=== PATIENT | male | born 1950 | race African-American/Black ===

== ENCOUNTER 2018-02-04 08:54 | Day surgery (SDC) | payer OTHER ==
[~2018-02-04 08:54] MED LIST: TETRACAINE 0.5% OPHTH 1 DOSE AFFEYE ONE; VIGAMOX 0.5% OPHTH 1 DOSE AFFEYE ONE
[2018-02-04] MEDS ORDERED: VIGAMOX 0.5% OPHTH 1 DOSE AFFEYE ONE ×2 (08:56→09:01)
[2018-02-04] MEDS ORDERED: PROLENSA OPHTH 1 DOSE AFFEYE ONE (09:02)
[2018-02-04] MEDS ORDERED: ALPHAGAN-P OPHTH 1 DOSE AFFEYE ONE (09:03)
[2018-02-04] MEDS ORDERED: AK-DILATE 2.5% OPHTH 1 DOSE OP ONE ×3 (09:04→09:06)
[2018-02-04] MEDS ORDERED: MYDRIACIL OPHTH 1 DOSE AFFEYE ONE ×3 (09:04→09:06)
[2018-02-04] MEDS ORDERED: CYCLOGYL 1% OPHTH 1 DOSE OP ONE ×3 (09:04→09:06)
[2018-02-04] MEDS ORDERED: NS 500 ML IV 500 ML IV ONE (09:14)
[2018-02-04] MEDS ORDERED: BETADINE OPHTH SOLN 5% EACHEYE ONE (13:00)
[2018-02-04] MEDS ORDERED: TETRACAINE 0.5% OPHTH 1 DOSE AFFEYE ONE ×2 (13:00→13:03)
[2018-02-04] MEDS ORDERED: BSS OPHTH (PLAIN) 500 ML with VANCOMYCIN HCL 500 MG VIAL 25 MG, ADRENALINE CHL INJ 1 MG IR ONE ×3 (13:03)
[2018-02-04] MEDS ORDERED: DUOVISC IO ONE (13:04)
[2018-02-04] MEDS ORDERED: ADRENALINE CHL INJ IJ ONE (13:04)
[2018-02-04] MEDS ORDERED: XYLOCAINE-MPF 1% IJ ONE (13:04)
[2018-02-04] MEDS ORDERED: VIGAMOX 0.5% AFFEYE ONE (13:17)
[2018-02-04] MEDS ORDERED: DIPRIVAN VIAL ONE (15:37)
[2018-02-04 16:17] VITALS: BP 141/68
== END 2018-02-04 13:43 | disposition home or self-care (01) ==
LOC: SURG1 08:54
PROVIDERS: ATTEND Ophthalmology
PROC: 08DK3ZZ Extraction of Left Lens, Percutaneous Approach (ICD-10-PCS; principal; 2018-02-04 16:30)
PROC: 08RK3JZ Replacement of Left Lens with Synthetic Substitute, Percutaneous Approach (ICD-10-PCS; principal; 2018-02-04 16:30)
DX: H25.12 Age-related nuclear cataract, left eye (principal); H25.012 Cortical age-related cataract, left eye
CPT/HCPCS: A4217; J0170; J3370; J3490

== ENCOUNTER 2018-02-18 07:31 | Day surgery (SDC) | payer OTHER ==
[~2018-02-18 07:31] MED LIST changes: +NS 1000 ML 1,000 ML ONE; -TETRACAINE 0.5% OPHTH 1 DOSE AFFEYE ONE; -VIGAMOX 0.5% OPHTH 1 DOSE AFFEYE ONE
[2018-02-18] MEDS ORDERED: TETRACAINE 0.5% OPHTH 1 DOSE AFFEYE ONE ×3 (08:00→10:46)
[2018-02-18] MEDS ORDERED: VIGAMOX 0.5% OPHTH 1 DOSE AFFEYE ONE ×5 (08:05→11:02)
[2018-02-18] MEDS ORDERED: PROLENSA OPHTH 1 DOSE AFFEYE ONE (08:16)
[2018-02-18] MEDS ORDERED: ALPHAGAN-P OPHTH 1 DOSE AFFEYE ONE (08:17)
[2018-02-18] MEDS ORDERED: CYCLOGYL 1% OPHTH 1 DOSE OP ONE ×3 (08:18→08:20)
[2018-02-18] MEDS ORDERED: AK-DILATE 2.5% OPHTH 1 DOSE OP ONE ×3 (08:18→08:20)
[2018-02-18] MEDS ORDERED: MYDRIACIL OPHTH 1 DOSE AFFEYE ONE ×3 (08:18→08:20)
[2018-02-18] MEDS ORDERED: BETADINE OPHTH SOLN 5% EACHEYE ONE (10:39)
[2018-02-18] MEDS ORDERED: XYLOCAINE-MPF 1% IJ ONE (10:46)
[2018-02-18] MEDS ORDERED: ADRENALINE CHL INJ IJ ONE (10:46)
[2018-02-18] MEDS ORDERED: DUOVISC IO ONE (10:46)
[2018-02-18] MEDS ORDERED: BSS OPHTH (PLAIN) 500 ML with VANCOMYCIN HCL 500 MG VIAL 25 MG, ADRENALINE CHL INJ 1 MG IR ONE ×3 (10:47)
[2018-02-18] MEDS ORDERED: VERSED ONE (13:49)
[2018-02-18] MEDS ORDERED: DIPRIVAN VIAL ONE (13:49)
[2018-02-18 14:59] VITALS: BP 111/63
== END 2018-02-18 11:25 | disposition home or self-care (01) ==
LOC: SURG1 07:31
PROVIDERS: ATTEND Ophthalmology
PROC: 08DJ3ZZ Extraction of Right Lens, Percutaneous Approach (ICD-10-PCS; principal; 2018-02-18 10:15)
PROC: 08RJ3JZ Replacement of Right Lens with Synthetic Substitute, Percutaneous Approach (ICD-10-PCS; principal; 2018-02-18 10:15)
DX: H25.11 Age-related nuclear cataract, right eye (principal); H25.011 Cortical age-related cataract, right eye; H25.041 Posterior subcapsular polar age-related cataract, right eye
CPT/HCPCS: A4217; J0170; J2250; J3370; J3490